=== PATIENT | male | born 1995 | race Caucasian/White ===

== ENCOUNTER 2023-07-02 21:57 | Emergency (ER) | payer BC, SELFPAY ==
[2023-07-02 22:05] VITALS: BP 149/97; PULSE 89; RESP 18; TEMP 36.6; O2SAT 96; BMI 21.4
--- NOTE | 2023-07-02 22:13 | ED_ITS ---
HPI - General Adult General Chief complaint: Unspecified Complaint, Adult Stated complaint: Low BP Time Seen by Provider: 07/02/23 22:05 History of Present Illness HPI narrative: laying down, felt heart racing and lightheaded, states he felt cold and dizzy and came in. had 4 beers after work today. states similar happened at work but it went away. denies any cough congestion or CP, SOB 27-year-old young man presenting to the emergency department with concern of being not actually dizzy but is lightheaded. Feels in a fog. Did have 4 beers after work today and he and significant other here did acknowledge that probably needs to cut back. Does admit the thinks he probably had some degree of a panic attack related to the symptoms. Has had some degree of anxiety before. Had a similar experience last week about 5 days ago. Spontaneous resolution. Has not had any cough or cold symptoms. Not short of breath at rest. Does not have unusual exercise intolerance. Also regular use of marijuana/THC and had some earlier. Family history of what sounds like easy syncope. No sudden cardiac or hypertrophic cardiomyopathy. Related Data Home Medications Medication Instructions Recorded Confirmed dextroamphetamine-amphetamine ER 1 cap PO DAILY 07/02/23 07/02/23 20 mg 24hr capsule,extend release Allergies Allergy/AdvReac Type Severity Reaction Status Date / Time No Known Drug Allergies Allergy Verified 07/02/23 22:07 Review of Systems Status of ROS: Reports: 6 or more systems reviewed and unremarkable except as noted in History and below [facility] Medical History No significant past medical history Surgical History No significant past surgical history Social History Smoking Status: Never smoker Second hand tobacco smoke exposure: No How often do you have a drink containing alcohol: never AUDIT-C Alcohol total score: 0 Non-prescribed substance use: marijuana (any form) Exam Narrative: Exam Narrative: Pleasant. Well-nourished. Breathing easily. Lungs are clear. Well built. It does appear mildly anxious a little distracted. A little somnolent. Heart in regular rate and rhythm without murmur rub or gallop. Normal PMI. Blood pressure noted to be mildly elevated. Head looks atraumatic. Cranial nerves 2- 12 intact. There is no nystagmus. Moving all extremities without difficulty. No sensory deficits apparent. Well-perfused peripherally. Edema. Const: Vital Signs, click to edit/add: Vital Signs - 24 hr 07/02/23 22:05 Temperature 97.8 F Pulse Rate [Pulse Oximeter] 89 Respiratory Rate 18 Blood Pressure [Ri ght Upper Arm] 149/97 H Pulse Oximetry 96 Oxygen Delivery Me thod Room Air Documenting provider has reviewed patient's vital signs: yes Course Vital Signs Vital signs: Initial Vital Signs Temperature 97.8 F 07/02/23 22:05 Temperature Source Temporal Artery Scan 07/02/23 22:05 Pulse Rate 89 07/02/23 22:05 Respiratory Rate 18 07/02/23 22:05 Blood Pressure 149/97 H 07/02/23 22:05 Blood Pressure Mean 114 H 07/02/23 22:05 Blood Pressure Position Sitting 07/02/23 22:05 Pulse Oximetry 96 07/02/23 22:05 Oxygen Delivery Method Room Air 07/02/23 22:05 Vital Signs Temperature 97.8 F 07/02/23 22:05 Pulse Rate 89 07/02/23 22:05 Respiratory Rate 18 07/02/23 22:05 Blood Pressure 149/97 H 07/02/23 22:05 Pulse Oximetry 96 07/02/23 22:05 Oxygen Delivery Method Room Air 07/02/23 22:05 Temperature 97.8 F 07/03/23 00:01 Pulse Rate 75 07/03/23 00:01 Respiratory Rate 18 07/03/23 00:01 Blood Pressure 128/74 07/03/23 00:01 Pulse Oximetry 96 07/03/23 00:01 Oxygen Delivery Method Room Air 07/03/23 00:01 Medical Decision Making MDM Narrative Medical decision making narrative: Differential to include anemia, dysrhythmia, panic attack, substance use, hypertrophic cardiomyopathy, pneumothorax. Doubtful ischemic cardiovascular event or pulmonary embolus Will check basic labs and U tox. Monitor on cardiac event. Did offer chest x- ray which was declined. Labs most notable for U tox positive for THC and cocaine. When presented with this information does acknowledge that he wondered whether not might have been something in with the THC/marijuana. Generally more alert, focused on reassessment. Vitals improved, stable I think presence of cocaine as explanation for symptoms here today that also may have precipitated panic attack. Possibly arrhythmia or tachyarrhythmia that is no longer present. See patient discharge plan for further discussion Lab Data Lab results reviewed: Yes I reviewed the patient's lab results Labs: Lab Results 07/02/23 07/02/23 Range/Units 22:53 23:05 Hgb 15.5 (13.5-17.5) gm/dL Sodium 136 (135-149) mmol/L Potassium 4.0 (3.6-5.1) mmol/L Chloride 102 (96-114) mmol/L Carbon Dioxide 25 (20-32) mmol/L Anion Gap 9 (7-15) mEq/L BUN 11 (5-24) mg/dL Creatinine 0.8 (0.5-1.5) mg/dL Estimated Creat Clear 169.07 Estimated GFR 124 ml/min Glucose 104 (60-115) mg/dL Calcium 9.7 (8.4-10.6) mg/dL Troponin I < 0.01 L (0.01-0.04) ng/mL NT-Pro-B Natriuret Pep < 20 pg/mL Urine Opiates Screen Negative (Negative) Ur Oxycodone Screen Negative (Negative) Urine Methadone Screen Negative (Negative) Ur Barbiturates Screen Negative (Negative) U Tricyclic Antidepress Negative (Negative) Ur Phencyclidine Scrn Negative (Negative) Ur Amphetamines Screen Negative (Negative) U Methamphetamines Scrn Negative (Negative) U Benzodiazepines Scrn Negative (Negative) Urine Cocaine Screen POSITIVE A (Negative) U Marijuana (THC) Screen POSITIVE A (Negative) Ur Drug Screen Comment See Note Ethyl Alcohol < 0.01 L (0.01-0.03) % Discharge Plan Discharge Clinical Impression: Substance use, Anxiety attack Patient Disposition: Home w/ Parent or Adult Condition: Improved Additional Instructions: Be careful. I appreciate how you are suggesting that alcohol is a potential problem. Try to get quality and regular sleep. Return as needed. Prescriptions: No Action dextroamphetamine-amphetamine 20 mg capsule,extended release 24hr 1 cap PO DAILY Follow Up/Referrals: Provider,Not a Local [Primary Care Provider] - Stand Alone Forms: [employer] Info Instructions
[2023-07-02 22:30] VITALS: O2SAT 99
[2023-07-02 23:02] VITALS: BP 128/81; PULSE 83; RESP 18; O2SAT 98
[2023-07-02 23:08] LABS: Hemoglobin* 15.5 gm/dL (13.5-17.5)
[2023-07-02 23:15] LABS: Amphetamine Screen Urine Negative (Negative); Barbiturate Screen Urine Negative (Negative); Benzodiazepines Screen Urine Negative (Negative); Cannabinoid Screen Urine POSITIVE (Negative); Cocaine Screen Urine POSITIVE (Negative); Methadone Screen Urine Negative (Negative); Methamphetamines Screen Urine Negative (Negative); Opiate Screen Urine Negative (Negative); Oxycodone Screen Urine Negative (Negative); Phencyclidine Screen Urine Negative (Negative); Tricyclic Antidepressant Urine Negative (Negative)
[2023-07-02 23:23] LABS: Chloride* 102 mmol/L (96-114); Sodium* 136 mmol/L (135-149)
[2023-07-02 23:26] LABS: Anion Gap 9 mEq/L (7-15); Blood Urea Nitrogen* 11 mg/dL (5-24); Carbon Dioxide* 25 mmol/L (20-32); Creatinine* 0.8 mg/dL (0.5-1.5); Est. Creatinine Clearance* 169.07; Estimated Glomerular Filt Rate 124 ml/min
[2023-07-02 23:27] LABS: Calcium* 9.7 mg/dL (8.4-10.6); Glucose* 104 mg/dL (60-115)
[2023-07-02 23:29] LABS: Ethanol* < 0.01 % (0.01-0.03)
[2023-07-02 23:32] VITALS: BP 132/71; PULSE 70; RESP 18; O2SAT 96
[2023-07-02 23:38] LABS: NT Pro B Type NatriureticPept* < 20 pg/mL
[2023-07-02 23:39] LABS: Troponin I* < 0.01 ng/mL (0.01-0.04)
[2023-07-03 00:01] VITALS: BP 128/74; PULSE 75; RESP 18; TEMP 36.6; O2SAT 96
== END 2023-07-03 00:03 | disposition home or self-care (01) ==
PROVIDERS: Emergency Provider Family Medicine
DX: F41.9 Anxiety disorder, unspecified (principal); F19.10 Other psychoactive substance abuse, uncomplicated
CPT/HCPCS: 36415; 80048; 80306; 82077; 83880; 84484; 85018; 93005; 94761; 99284